=== PATIENT | female | born 1985 | race Caucasian/White ===

== ENCOUNTER → 2020-01-22 | Outpatient (CLI) | payer OTHER ==
[~2020-01-22] MED LIST: IBUP-1223 PO; SERT50TA PO; muscle relaxer
[2020-01-22 10:26] LABS: BASOPHILS # (AUTO) 0.04 x10^3/uL (0-0.1); BASOPHILS % (AUTO) 1 % (0-1); EOSINOPHILS # (AUTO) 0.16 x10^3/uL (0-0.4); EOSINOPHILS % (AUTO) 2 % (1-7); LYMPHOCYTES # (AUTO) 2.58 x10^3/uL (1-3.4); LYMPHOCYTES % (AUTO) 39 % (22-44); MD NO; MEAN CORPUSCULAR HEMOGLOBIN 32.5 pg (27.0-34.8); MEAN CORPUSCULAR HGB CONC 34.3 g/dL (32.4-35.8); MEAN CORPUSCULAR VOLUME 94.6 fL (80-100); MEAN PLATELET VOLUME 7.4 fL (7.4-10.4); MONOCYTES # (AUTO) 0.48 x10^3/uL (0.2-0.8); MONOCYTES % (AUTO) 7 % (2-9); NEUTROPHILS # (AUTO) 3.36 x10^3/uL (1.8-6.8); NEUTROPHILS % (AUTO) 51 % (42-75); PLATELET COUNT 349 x10^3/uL (130-400); RED BLOOD COUNT 4.55 x10^6/uL (3.82-5.3); RED CELL DISTRIBUTION WIDTH 13.1 % (9.6-15.2)
[2020-01-22 10:33] LABS: MICROSCOPIC INDICATED
[2020-01-22 10:36] LABS: INTERNATIONAL NORMALIZED RATIO 1.02 (0.93-1.1); PROTHROMBIN TIME 10.8 Seconds (9.6-11.5)
[2020-01-22 10:38] LABS: ALANINE AMINOTRANSFERASE 54 U/L (12-78); ALBUMIN 3.7 g/dL (3.4-5.0); ANION GAP 9 mmol/L (5-15); CHLORIDE 111 mmol/L (98-107); CREATININE 0.89 mg/dL (0.55-1.02)
[2020-01-22 10:41] LABS: ALKALINE PHOSPHATASE 78 U/L (45-117); BILIRUBIN,TOTAL 0.6 mg/dL (0.2-1.0); TOTAL PROTEIN 7.8 g/dL (6.4-8.2)
== END | disposition home or self-care (01) ==
LOC: STAR 09:27
PROVIDERS: ATTEND Orthopaedic Surgery Orthopaedic Surgery of the Spine
DX: Z01.818 Encounter for other preprocedural examination (principal); Z11.59 Encounter for screening for other viral diseases; R00.1 Bradycardia, unspecified; M54.16 Radiculopathy, lumbar region
CPT/HCPCS: 36415; 71046; 80053; 80074; 81001; 85025; 85610; 85651; 85730; 87086; 87806; 93005; U0001; G0475

== ENCOUNTER 2020-01-26 08:24 | Day surgery (SDC) | payer OTHER ==
[~2020-01-26] VITALS: Ht 185.4 cm; Wt 127.3 kg
[2020-01-26] MEDS ORDERED: LACTATED RINGERS 1,000 ML IV SCH (08:55)
[2020-01-26] MEDS ORDERED: CHLORHEXIDINE 15 ML UDC MM STA (08:55)
[2020-01-26] MEDS ORDERED: FENTANYL PF 250 MCG/5ML ONE (09:00)
[2020-01-26] MEDS ORDERED: MIDAZOLAM 1 MG/ML, 2ML ONE (09:00)
[2020-01-26 09:24] LABS: HCG UR SG 1.029 (1.003-1.030)
[2020-01-26] MEDS ORDERED: LIDOCAINE GEL 2%, 5ML ONE (09:24)
[2020-01-26] MEDS ORDERED: LIDOCAINE-MPF 2% ,5ML ONE (09:25)
[2020-01-26] MEDS ORDERED: THROMBIN 5,000 UNIT VIAL TP ONE (09:51)
[2020-01-26] MEDS ORDERED: VANCOMYCIN 1,000 MG ONE (09:51)
[2020-01-26] MEDS ORDERED: BUPIVACAINE/PF-EPI 0.5% 1:200K ONE (09:51)
[2020-01-26] MEDS ORDERED: LIDOCAINE 1%-EPI 1:100K, 20ML ONE (09:51)
[2020-01-26] MEDS ORDERED: ROCURONIUM 10 MG/ML,10ML ONE (10:47)
[2020-01-26] MEDS ORDERED: SUCCINYLCHOLINE 20 MG/ML, 10ML ONE (10:47)
[2020-01-26] MEDS ORDERED: GENTAMICIN 80 MG/2 ML ONE ×2 (11:05)
[2020-01-26] MEDS ORDERED: HYDROmorphone 1 MG/ML, 1ML INJ IVPush PRN (11:30)
[2020-01-26] MEDS ORDERED: MIDAZOLAM 1 MG/ML, 2ML IV PRN (11:30)
[2020-01-26] MEDS ORDERED: FENTANYL PF 100 MCG/2ML IV PRN (11:30)
[2020-01-26] MEDS ORDERED: MEPERIDINE/PF 25MG/0.5ML IVPush PRN (11:30)
[2020-01-26] MEDS ORDERED: LABETALOL 5MG/ML, 20ML IV PRN (11:30)
[2020-01-26] MEDS ORDERED: ACETAMINOPHEN 325 MG TABLET PO PRN (11:30)
[2020-01-26] MEDS ORDERED: PROMETHAZINE 25 MG/ML, 1ML IVPush PRN (11:30)
[2020-01-26] MEDS ORDERED: hydrALAzine 20 MG/ML, 1ML IV PRN (11:30)
[2020-01-26] MEDS ORDERED: ALBUTEROL SULFATE 2.5 MG/3 ML NPPB PRN (11:30)
[2020-01-26] MEDS ORDERED: DEXAMETHASONE 4 MG/ML, 1ML ONE (12:27)
[2020-01-26] MEDS ORDERED: ONDANSETRON 2MG/ML, 2ML ONE ×2 (12:27)
[2020-01-26] MEDS ORDERED: PROPOFOL 10 MG/ML, 20ML ONE (12:27)
[2020-01-26] MEDS ORDERED: CEFAZOLIN 1,000 MG ONE (12:27)
[2020-01-26] MEDS ORDERED: OXYcodone 5 MG/5 ML ORAL.SOL UDC ONE (12:57)
[2020-01-26] MEDS ORDERED: ACETAMINOPHEN 325 MG TABLET ONE ×2 (12:57)
[2020-01-26] MEDS ORDERED: ACETAMINOPHEN 650 MG/20.3 ML UDC ONE (12:58)
[2020-01-26] MEDS ORDERED: METHOCARBAMOL 1,000 MG in DEXTROSE 5% 100 ML IV ONE (13:00)
[2020-01-26] MEDS: OXYcodone 5 MG/5 ML ORAL.SOL UDC PO PRN ×2 (13:00→13:56)
[2020-01-26] MEDS ORDERED: MEPERIDINE/PF 25MG/ML,1ML ONE (13:02)
== END 2020-01-26 15:00 | disposition home or self-care (01) ==
LOC: OUT 08:24
PROVIDERS: ATTEND Orthopaedic Surgery Orthopaedic Surgery of the Spine
DX: M51.17 Intervertebral disc disorders with radiculopathy, lumbosacral region (principal); E66.9 Obesity, unspecified; Z68.37 Body mass index [BMI] 37.0-37.9, adult; Z79.1 Long term (current) use of non-steroidal anti-inflammatories (NSAID); Z79.899 Other long term (current) drug therapy; Z91.040 Latex allergy status; Z98.890 Other specified postprocedural states
CPT/HCPCS: 63030; 72100; 81025; J0330; J0690; J1100; J1580; J2175; J2250; J2405; J2704; J2800; J3010; J3490; J7120; J3370